=== PATIENT | female | born 1990 | race Caucasian/White ===

== ENCOUNTER → 2019-12-17 | Outpatient (CLI) | payer OTHER ==
--- NOTE | 2019-12-17 09:21 | USB ---
Reason for exam: clinical finding. History: Family history of breast cancer in paternal aunt. Indicated problem(s): palpable abnormality in the left breast. Physical Findings: Nurse Summary: all soft, nodular, moveable (nurse ts). US Breast LT Left complete breast ultrasound includes all four quadrants, the retroareolar region and axilla. Finding demonstrates no cystic or solid lesion seen. These results were verbally communicated with the patient and result sheet given to the patient on 12/17/19. ASSESSMENT: Negative, BI-RAD 1 RECOMMENDATION: Routine screening mammogram of both breasts at age 40. Unless there is clinical indication to start sooner. Manage on a clinical basis with regard to any suspicious palpable abnormality. If any new palpable, the patient can be rescanned.
== END | disposition home or self-care (01) ==
LOC: RADUSWWP 07:06
PROVIDERS: ATTEND Family Medicine
DX: N63.20 Unspecified lump in the left breast, unspecified quadrant (principal)

== ENCOUNTER 2020-04-16 17:59 | Emergency (ER) | payer OTHER ==
[2020-04-16 18:08] VITALS: TEMP 98.4
[2020-04-16] MEDS ORDERED: SODIUM CHLORIDE 0.9% 1,000 ML IV ONE (18:41)
[2020-04-16] MEDS ORDERED: METOCLOPRAMIDE 5 MG/ML 2 ML VIAL IVP STA (18:41)
[2020-04-16 19:12] LABS: Basophils % (A) 0 %; Eosinophils # (A) 0.2 k/uL (0-0.7); Eosinophils % (A) 1 %; HCT 44.2 % (34.0-46.0); Lymphocytes % (A) 20 %; MCH 28.9 pg (25.0-35.0); MCHC 31.7 g/dL (31.0-37.0); Mean Platelet Volume 8.9; Monocytes # (A) 0.4 k/uL (0-1.0); Monocytes % (A) 3 %; Neutrophils # (A) 11.1 k/uL (1.3-7.7); Neutrophils % (A) 74 %; Platelet Count 241 k/uL (150-450); RBC 4.86 m/uL (3.80-5.40)
[2020-04-16 19:30] LABS: ALT 13 U/L (4-34); AST 23 U/L (14-36); African American GFR (CKD) >90 (>60 ml/min/1.73 sqM); Albumin 4.5 g/dL (3.5-5.0); Alkaline Phosphatase 64 U/L (38-126); Anion Gap 9 mmol/L; Blood Urea Nitrogen 8 mg/dL (7-17); Calcium 9.7 mg/dL (8.4-10.2); Carbon Dioxide 27 mmol/L (22-30); Chloride 101 mmol/L (98-107); Glucose 86 mg/dL (74-99); Non-African American GFR(CKD) >90 (>60 ml/min/1.73 sqM); Sodium 137 mmol/L (137-145); Total Bilirubin 0.8 mg/dL (0.2-1.3); Total Protein 7.4 g/dL (6.3-8.2)
[2020-04-16 19:48] LABS: Appearance,Urine Cloudy (Clear); Bacteria,Urine Many /hpf; Bilirubin,Urine Negative (Negative); Blood,Urine Negative (Negative); Color,Urine Yellow; Glucose,Urine (UA) Negative (Negative); Ketones,Urine 2+ (Negative); Leukocyte Esterase,Urine Small (Negative); Mucus,Urine Few /hpf; Nitrite,Urine Negative (Negative); PH, Urine 5.5 (5.0-8.0); Protein,Urine Trace (Negative); RBC,Urine 3 /hpf (0-5); Specific Gravity,Urine 1.028 (1.001-1.035); Squamous Epithelial Cell,Urine 58 /hpf (0-4); Urobilinogen,Urine <2.0 mg/dL (<2.0); WBC,Urine 5 /hpf (0-5)
--- NOTE | 2020-04-16 20:04 | US ---
EXAMINATION TYPE: Transabdominal DATE OF EXAM: 04/16/2020 7:39 PM COMPARISON: NONE CLINICAL HISTORY: n/v . EXAM PERFORMED: Transabdominal (TA) EXAM MEASUREMENTS: GESTATIONAL AGE / DATING Physician Established: Not yet established Dates by LMP: 01/20/2020 (12 weeks/3 days) EDC: 10/26/2020 Dates by First Scan: No previous this is first scan Dates by Current Scan for: (11 weeks/1 days) EDC: 11/04/2020 MATERNAL ANATOMY Uterus: 11.9 x 3.9 x 8.3 cm Right Ovary: 3.2 x 1.6 x 3.1 cm Left Ovary: 2.8 x 1.3 x 2.4 cm Post CDS / Adnexa: wnl Presence of free fluid: none GESTATION / SURVEY CRL: 4.3 cm (11 weeks/1 days) Yolk Sac (normal less than 6mm): 0.5 cm Heart Rate: 151 bpm Rhythm: Normal IUP: Viable IUP Date of LMP: 01/20/2020 Beta HcG (if available): not available Single viable IUP. IMPRESSION: The ultrasound gestational age is 11 weeks and 1 day. No complicating process.
[2020-04-16 20:13] VITALS: PULSE 55; RESP 12
[2020-04-16] MEDS ORDERED: CEPHALEXIN 500 MG CAP PO STA (20:23)
--- NOTE | 2020-04-16 20:37 | ED ---
General Adult HPI - General Chief complaint: Nausea/Vomiting/Diarrhea Stated complaint: vomiting Time Seen by Provider: 04/16/20 18:18 Source: patient, RN notes reviewed, old records reviewed Mode of arrival: ambulatory Limitations: no limitations - History of Present Illness Initial comments: 29-year-old female patient who is a approximately 12 weeks gestation to ED for nausea and vomiting. Denies any vaginal bleeding, abdominal pain or any other acute complaints. Systemic: Pt denies fatigue, fever/chills, rash. Pt denies weakness, night sweat s, weight loss. Neuro: Pt denies headache, visual disturbances, syncope or pre-syncope. HEENT: Pt denies ocular discharge or irritation, otalgia, rhinorrhea, pharyngitis or notable lymphadenopathy. Cardiopulmonary: Pt denies chest pain, SOB, heart palpitations, dyspnea on exertion. Abdominal/GI: Pt denies abdominal pain, diarrhea. : Pt denies dysuria, burning w/ urination, frequency/urgency. Denies new onset urinary or bowel incontinence. MSK: Pt denies myalgia, loss of strength or function in extremities. Neuro: Pt denies new onset weakness, paresthesias. - Related Data Home Medications Medication Instructions Recorded Confirmed Zke-Pkvs-Ppwvx Acid 1 cap PO DAILY 04/16/20 04/16/20 [-U Capsule (formulary)] Pyridoxine HCl (Vitamin B6) 100 mg PO DAILY 04/16/20 04/16/20 [Vitamin B-6] Sertraline HCl [Zoloft] 50 mg PO DAILY 04/16/20 04/16/20 Previous Rx's Medication Instructions Recorded Cephalexin [Keflex] 500 mg PO Q12HR 5 Days #10 cap 04/16/20 Allergies Allergy/AdvReac Type Severity Reaction Status Date / Time Penicillins Allergy Unknown Verified 04/16/20 20:29 Review of Systems ROS Statement: Those systems with pertinent positive or pertinent negative responses have been documented in the HPI. ROS Other: All systems not noted in ROS Statement are negative. Past Medical History Past Medical History: No Reported History History of Any Multi-Drug Resistant Organisms: None Reported Past Surgical History: Section Past Psychological History: No Psychological Hx Reported Smoking Status: Never smoker Past Alcohol Use History: None Reported Past Drug Use History: None Reported General Exam - General Exam Comments Initial Comments: Constitutional: NAD, AOX3, Pt has pleasant affect. HEENT: NC/AT, trachea midline, neck supple, no lymphadenopathy. External ears appear normal, without discharge. Mucous membranes moist. Eyes PERRLA, EOM intact. There is no scleral icterus. No pallor noted. Cardiopulmonary: RRR, no murmurs, rubs or gallops, no JVD noted. Lungs CTAB in anterior and posterior celestin. No peripheral edema. Abdominal exam: Abdomen soft and non-distended. Abdomen non-tender to palpation in all 4 quadrants. Bowel sounds active in LLQ. No hepatosplenomegaly. No ecchymosis Neuro: CN II-XII grossly intact. No nuchal rigidity. MSK: Full active ROM in upper and lower extremities. Limitations: no limitations Course Vital Signs 04/16/20 04/16/20 18:05 20:12 Temperature 98.4 F Pulse Rate 63 55 L Respiratory 18 12 Rate Blood Pressure 116/76 98/59 O2 Sat by Pulse 99 99 Oximetry Medical Decision Making - Medical Decision Making 29-year-old female patient to ED for nausea and vomiting. 2. Patient not previously had an ultrasound that displayed intrauterine . Vital s igns are stable, afebrile. O2 investigations reveal mild cytosis likely reactive. UA had 2+ ketones, 58 squamous cells, many bacteria. US displayed a gestational age of 11 weeks and 1 day. Patient is feeling much improved and is tolerating oral intake was administered 1 L of normal saline. Shared decision making patient does wish to be treated with Keflex for asymptomatic bacteriuria. Discussed her penicillin allergyshe verbalized understanding and wishes to try keflex. She reports that she is taking her vitamins. She'll follow up with primary care provider, dish room worker and will return to ER with any worsening symptoms. Case discussed with Dr. Ashley. - Lab Data Result diagrams: 04/16/20 18:54 04/16/20 18:54 Lab Results 04/16/20 04/16/20 04/16/20 Range/Units 18:54 18:54 18:54 WBC 15.0 H (3.8-10.6) k/uL RBC 4.86 (3.80-5.40) m/uL Hgb 14.0 (11.4-16.0) gm/dL Hct 44.2 (34.0-46.0) % MCV 91.0 (80.0-100.0) fL MCH 28.9 (25.0-35.0) pg MCHC 31.7 (31.0-37.0) g/dL RDW 13.0 (11.5-15.5) % Plt Count 241 (150-450) k/uL Neutrophils % 74 % Lymphocytes % 20 % Monocytes % 3 % Eosinophils % 1 % Basophils % 0 % Neutrophils # 11.1 H (1.3-7.7) k/uL Lymphocytes # 3.0 (1.0-4.8) k/uL Monocytes # 0.4 (0-1.0) k/uL Eosinophils # 0.2 (0-0.7) k/uL Basophils # 0.0 (0-0.2) k/uL Sodium 137 (137-145) mmol/L Potassium 4.0 (3.5-5.1) mmol/L Chloride 101 (98-107) mmol/L Carbon Dioxide 27 (22-30) mmol/L Anion Gap 9 mmol/L BUN 8 (7-17) mg/dL Creatinine 0.56 (0.52-1.04) mg/dL Est GFR (CKD-EPI)AfAm >90 (>60 ml/min/1.73 sqM) Est GFR (CKD-EPI)NonAf >90 (>60 ml/min/1.73 sqM) Glucose 86 (74-99) mg/dL Calcium 9.7 (8.4-10.2) mg/dL Total Bilirubin 0.8 (0.2-1.3) mg/dL AST 23 (14-36) U/L ALT 13 (4-34) U/L Alkaline Phosphatase 64 (38-126) U/L Total Protein 7.4 (6.3-8.2) g/dL Albumin 4.5 (3.5-5.0) g/dL Urine Color Yellow Urine Appearance Cloudy H (Clear) Urine pH 5.5 (5.0-8.0) Ur Specific Proctor 1.028 (1.001-1.035) Urine Protein Trace H (Negative) Urine Glucose (UA) Negative (Negative) Urine Ketones 2+ H (Negative) Urine Blood Negative (Negative) Urine Nitrite Negative (Negative) Urine Bilirubin Negative (Negative) Urine Urobilinogen <2.0 (<2.0) mg/dL Ur Leukocyte Esterase Small H (Negative) Urine RBC 3 (0-5) /hpf Urine WBC 5 (0-5) /hpf Ur Squamous Epith Cells 58 H (0-4) /hpf Urine Bacteria Many H (None) /hpf Urine Mucus Few H (None) /hpf Disposition Clinical Impression: Asymptomatic bacteriuria, Nausea and vomiting during Disposition: HOME SELF-CARE Condition: Stable Instructions (If sedation given, give patient instructions): Nausea and Vomiting in (ED) Additional Instructions: Follow up with PCP tomorrow. Follow up with MANAGER CHINESE tomorrow. Return to ED with any worsening symptoms. Prescriptions: Cephalexin [Keflex] 500 mg PO Q12HR 5 Days #10 cap Is patient prescribed a controlled substance at d/c from ED?: No Referrals: Lauro Isaacs [Primary Care Provider] - 1-2 days
[2020-04-16 20:46] VITALS: BP 101/60
[2020-04-16 21:52] LABS: HCG,Quantitative Serum 99411.4 mIU/mL
== END 2020-04-16 20:45 | disposition home or self-care (01) ==
LOC: EC 17:59
DX: O21.9 Vomiting of pregnancy, unspecified (principal); O23.91 Unspecified genitourinary tract infection in pregnancy, first trimester; R82.71 Bacteriuria; Z3A.11 11 weeks gestation of pregnancy; Z88.0 Allergy status to penicillin; Z98.890 Other specified postprocedural states; Z79.899 Other long term (current) drug therapy
CPT/HCPCS: 36415; 80053; 85025; 81001; 84702; 76801; 99284; 96374; 96361 ×2; J2765

== ENCOUNTER 2020-04-19 11:41 | Outpatient (CLI) | payer OTHER ==
[2020-04-19] MEDS: LACTATED RINGERS 1,000 ML IV SCH ×2 (12:00→12:41)
[2020-04-19] MEDS ORDERED: ONDANSETRON 4 MG/2 ML VIAL IVP STA (12:17)
[2020-04-19 13:59] LABS: Appearance,Urine Clear (Clear); Bilirubin,Urine Negative (Negative); Blood,Urine Negative (Negative); Color,Urine Yellow; Glucose,Urine (UA) Negative (Negative); Ketones,Urine 2+ (Negative); Leukocyte Esterase,Urine Negative (Negative); Nitrite,Urine Negative (Negative); PH, Urine 6.5 (5.0-8.0); Protein,Urine Negative (Negative); Specific Gravity,Urine 1.018 (1.001-1.035); Urobilinogen,Urine <2.0 mg/dL (<2.0)
[2020-04-19 14:36] VITALS: BP 115/69; PULSE 74; RESP 16; TEMP 97.3
--- NOTE | 2020-04-26 08:21 | P.MSEPDOC ---
Presenting Problems - Arrival Data Date of Arrival on Unit: 04/19/20 Time of Arrival on Unit: 11:41 Mode of Transport: Ambulatory - Complaint OB-Reason for Admission/Chief Complaint: Acute Nausea/Vomiting Medical History - Information : 2 Para: 1 Term: 1 : 0 Abortions: Spontaneous or Elective: 0 Number of Living Children: 1 - Gestational Age Gestational Age by SONALI (wks/days): 11 Weeks and 2 Days Review of Systems - Review of Systems Constitutional: No problems Breast: No problems ENT: No problems Cardiovascular: No problems Respiratory: No problems Gastrointestinal: No problems Genitourinary: No problems Musculoskeletal: No problems Neurological: No problems Skin: No problems Vital Signs - Temperature Temperature: 97.3 F Temperature Source: Temporal Artery Scan - Pulse Right Sitting Pulse Rate: 74 Pulse Assessment Method: Automatic Cuff - Respirations Respiratory Rate: 16 Oxygen Delivery Method: Room Air - Blood Pressure Right Arm Blood Pressure: 115/69 Blood Pressure Mean: 84 Blood Pressure Source: Automatic Cuff Medical Screen Scoring (Pre) - Cervical Exam Dilation: Exam Deferred Effacement: Exam Deferred Membranes: Intact - Uterine Contractions Frequency: N/A Duration: N/A Intensity: N/A - Maternal Vital Signs Maternal Temperature: N/A Maternal Blood Pressure: N/A Signs of Preeclampsia: N/A Maternal Respirations: N/A - Maternal Trauma Maternal Trauma: N/A - Total Score - Baby A Total Score - Baby A: 0 - Total Score - Baby B Total Score - Baby B: 0 - Total Score - Baby C Total Score - Baby C: 0 - Level of Risk - Baby A Level of Risk - Baby A: Low (0-5) - Level of Risk - Baby B Level of Risk - Baby B: Low (0-5) - Level of Risk - Baby C Level of Risk - Baby C: Low (0-5) Physician Notification (Pre) - Physician Notified Physician Notified Date: 04/19/20 Physician Notified Time: 14:22 New Order Received: Yes (d/c home) Disposition - Disposition OB Disposition: Discharge to home Discharge Date: 04/19/20 Discharge Time: 14:28 I agree with the RN Medical Screening Exam: Yes Risk & Benefit of care provided described in d/c instruction: Yes Diagnosis: MILD HYPEREMESIS GRAVIDARUM
== END 2020-04-19 14:28 | disposition home or self-care (01) ==
LOC: FBPOP 11:41
PROVIDERS: ATTEND Obstetrics & Gynecology
DX: O21.0 Mild hyperemesis gravidarum (principal); Z3A.11 11 weeks gestation of pregnancy
CPT/HCPCS: 96361; 96374; 81003; G0463; J2405; 99214

== ENCOUNTER 2020-11-10 05:08 | Inpatient (IN) | payer OTHER ==
[2020-11-10] MEDS ORDERED: LIDOCAINE 0.5% (PF) 5 MG/ML (50 ML SDV) SQ PRN (06:02)
[2020-11-10] MEDS ORDERED: OXYTOCIN 10 UNIT/ML 1 ML VIAL IM PRN (06:02)
[2020-11-10] MEDS ORDERED: CARBOPROST TROMETHAMINE 250 MCG/ML 1 ML AMP IM PRN (06:02)
[2020-11-10] MEDS ORDERED: METHYLERGONOVINE 0.2 MG/ML 1 ML AMP IM PRN (06:02)
[2020-11-10] MEDS ORDERED: TERBUTALINE 1 MG/ML VIAL SQ PRN (06:02)
[2020-11-10] MEDS ORDERED: OXYTOCIN 30 UNITS/500 ML NS 30 UNIT in SALINE 1 500ML.BAG IV SCH (06:15)
[2020-11-10] MEDS: LACTATED RINGERS 1,000 ML IV SCH ×4 (06:17→21:42)
[2020-11-10 06:56] LABS: Basophils % (A) 0 %; Eosinophils % (A) 0 %; HCT 33.4 % (34.0-46.0); HGB 10.5 gm/dL (11.4-16.0); Hypochromasia Moderate; Lymphocytes # (A) 2.1 k/uL (1.0-4.8); Lymphocytes % (A) 24 %; MCH 25.2 pg (25.0-35.0); MCHC 31.3 g/dL (31.0-37.0); MCV 80.4 fL (80.0-100.0); Mean Platelet Volume 14.5; Monocytes # (A) 0.3 k/uL (0-1.0); Monocytes % (A) 4 %; Neutrophils # (A) 6.5 k/uL (1.3-7.7); Neutrophils % (A) 71 %; Poikilocytosis Slight; RBC 4.16 m/uL (3.80-5.40); RDW 15.1 % (11.5-15.5); WBC 9.1 k/uL (3.8-10.6)
[2020-11-10 07:48] LABS: Platelet Count 118 k/uL (150-450)
[2020-11-10 07:49] LABS: Large Platelets Present
--- NOTE | 2020-11-10 11:04 | P.HPOB ---
History of Present Illness H&P Date: 11/10/20 Chief Complaint: SROM 30-year-old presents at 40 weeks and 6 days with spontaneous rupture of membranes at 3 AM. Her cervix is 3 cm solid, 60% effaced, and -2 station. She is kamran about every 20 minutes. heart tones 140 with moderate variability and reactive. Review of Systems All systems: negative Constitutional: Denies chills, Denies fever Eyes: denies blurred vision, denies pain Ears, nose, mouth and throat: Denies headache, Denies sore throat Cardiovascular: Denies chest pain, Denies shortness of breath Respiratory: Denies cough Gastrointestinal: Denies abdominal pain, Denies diarrhea, Denies nausea, Denies vomiting Genitourinary: Denies dysuria, Denies hematuria Musculoskeletal: Denies myalgias Integumentary: Denies pruritus, Denies rash Neurological: Denies numbness, Denies weakness Psychiatric: Denies anxiety, Denies depression Endocrine: Denies fatigue, Denies weight change Past Medical History Past Medical History: No Reported History History of Any Multi-Drug Resistant Organisms: None Reported Past Surgical History: Section Additional Past Surgical History / Comment(s): [place] teeth removal Past Anesthesia/Blood Transfusion Reactions: No Reported Reaction Past Psychological History: Anxiety, Depression Smoking Status: Never smoker Past Alcohol Use History: None Reported Past Drug Use History: None Reported - Past Family History Father Family Medical History: Hypertension Medications and Allergies Home Medications Medication Instructions Recorded Confirmed Type Zuf-Chtc-Xyujw Acid 1 cap PO DAILY 04/16/20 11/10/20 History [-U Capsule (formulary)] Sertraline HCl [Zoloft] 50 mg PO DAILY 04/16/20 11/10/20 History Allergies Allergy/AdvReac Type Severity Reaction Status Date / Time Penicillins Allergy Rash/Hives Verified 11/10/20 05:18 Exam Osteopathic Statement: *. No significant issues noted on an osteopathic structural exam other than those noted in the History and Physical/Consult. Vital Signs Temp Pulse Resp BP Pulse Ox 11/10/20 05:50 97.6 F 88 18 127/79 97 11/10/20 05:28 97.6 F 88 18 127/79 97 Intake and Output 11/09/20 11/10/20 11/10/20 22:59 06:59 14:59 Other: # Voids 1 Weight 80.286 kg Heart: Regular rate and rhythm Lungs: Clear to auscultation bilaterally Abdomen: Soft, nontender Extremities: Negative Homans sign Results Result Diagrams: 11/10/20 06:45 Abnormal Lab Results - Last 24 Hours (Table) 11/10/20 Range/Units 06:45 Hgb 10.5 L (11.4-16.0) gm/dL Hct 33.4 L (34.0-46.0) % Plt Count 118 L (150-450) k/uL Assessment and Plan (1) Encounter for trial of labor Current Visit: Yes Status: Acute Code(s): CBD8475 - SNOMED Code(s): 361995985 (2) SROM (spontaneous rupture of membranes) Current Visit: Yes Status: Acute Code(s): LBG4821 - SNOMED Code(s): 530123396 Plan: 1. expectant management 2. shared decision making during labor and delivery 3. close monitoring 4. anticipate vaginal after
--- NOTE | 2020-11-10 11:33 | P.MSEPDOC ---
Presenting Problems - Arrival Data Date of Arrival on Unit: 11/10/20 Time of Arrival on Unit: 05:42 Mode of Transport: Ambulatory - Complaint OB-Reason for Admission/Chief Complaint: Rule Out SROM Comment: Pt states water broke at home around 0300 with clear fluid Medical History - Information : 2 Para: 1 Term: 1 : 0 Abortions: Spontaneous or Elective: 0 Number of Living Children: 1 - Gestational Age Gestational Age by SONALI (wks/days): 40 Weeks and 6 Days - History Complications: Prior Review of Systems - Review of Systems Constitutional: No problems Breast: No problems ENT: No problems Cardiovascular: No problems Respiratory: No problems Gastrointestinal: No problems Genitourinary: No problems Musculoskeletal: No problems Neurological: No problems Skin: No problems Vital Signs - Temperature Temperature: 97.6 F Temperature Source: Temporal Artery Scan - Pulse Pulse Oximetery Pulse Rate: 88 Pulse Assessment Method: Automatic Cuff - Respirations Respiratory Rate: 18 Oxygen Delivery Method: Room Air O2 Sat by Pulse Oximetry: 97 - Blood Pressure Right Arm Blood Pressure: 127/79 Blood Pressure Mean: 95 Blood Pressure Source: Automatic Cuff Medical Screen Scoring (Pre) - Cervical Exam Dilation: 1-3 cm = 1 Effacement: Exam Deferred Membranes: Ruptured = 3 - Uterine Contractions Frequency: > 5 minutes apart = 1 Duration: N/A Intensity: N/A - Maternal Vital Signs Maternal Temperature: N/A Maternal Blood Pressure: N/A Signs of Preeclampsia: N/A Maternal Respirations: N/A - Maternal Trauma Maternal Trauma: N/A - Assessment - Baby A Baseline FHR: 140 Heart Rate - NICHD Category: Category I (Normal) = 0 NST: Reactive Position: N/A Station: N/A - Total Score - Baby A Total Score - Baby A: 5 - Total Score - Baby B Total Score - Baby B: 5 - Total Score - Baby C Total Score - Baby C: 5 - Level of Risk - Baby A Level of Risk - Baby A: Low (0-5) - Level of Risk - Baby B Level of Risk - Baby B: Low (0-5) - Level of Risk - Baby C Level of Risk - Baby C: Low (0-5) Physician Notification (Pre) - Physician Notified Physician Notified Date: 11/10/20 Physician Notified Time: 05:55 New Order Received: Yes - Notification Comment Comment: Dr. Hanna called re: pt c/o water breaking around 0300 with clear fluid,. positive amnisure, SVE, GBS status, pt desire to and status. Orders received. to admit pt and start pitocin per protocol Disposition - Disposition OB Disposition: Admit, LDRP Suite Transferred to:: Suite 8 I agree with the RN Medical Screening Exam: Yes Case reviewed; plan agreed upon as documented in EMR&OBIX.: Yes Diagnosis: ENCOUNTER FOR FULL-TERM UNCOMPLICATED DELIVERY
[2020-11-10] MEDS ORDERED: BUTORPHANOL 1 MG/ML 1 ML VIAL IV PRN (12:59)
[2020-11-10] MEDS ORDERED: ROPIVACAINE 5MG/ML 20ML VIAL ONE (15:18)
[2020-11-10] MEDS ORDERED: fentaNYL (PF) 50 MCG/ML 5 ML AMP ONE (15:18)
[2020-11-10] MEDS ORDERED: SODIUM CHLORIDE 0.9% 100 ML BAG ONE (15:18)
[2020-11-10] MEDS ORDERED: CLINDAMYCIN 900 MG in DEXTROSE 5% IN WATER 50 ML IVPB STA ×2 (16:22)
[2020-11-10] MEDS ORDERED: LANOLIN CREAM 5 GM TUBE TOPICAL PRN (20:53)
[2020-11-10] MEDS ORDERED: SIMETHICONE 80 MG CHEWABLE PO PRN (20:53)
[2020-11-10] MEDS ORDERED: bisacodyL 10 MG SUPP RECTAL PRN (20:53)
[2020-11-10] MEDS ORDERED: ZOLPIDEM 5 MG TAB PO PRN (20:53)
[2020-11-10] MEDS ORDERED: HYDROCORTISONE 2.5% RECTAL CREAM 30 GM TUBE RECTAL PRN (20:53)
[2020-11-10] MEDS ORDERED: diphenhydrAMINE 25 MG CAP PO PRN (20:53)
[2020-11-10] MEDS ORDERED: diphenhydrAMINE 50 MG/ML 1 ML VIAL IVP PRN (20:53)
[2020-11-10] MEDS ORDERED: BENZOCAINE/MENTHOL SPRAY 1 GM/SPRAY AEROSOL TOPICAL PRN (20:53)
--- NOTE | 2020-11-10 21:05 | P.PROBDLV ---
Vaginal Delivery Note - . Vaginal Delivery Note: Normal vaginal delivery () viable male Apgars 7 and 9 delivery time is 5 hrs. Please see dictated H&P for intimate details of this patient's admission per Dr. Dunn. In brief summary this is a 30-year-old 2 para 1 female 40-6/7 weeks gestation admitted this morning after spontaneous rupture membranes at 3 in the morning. Patient has had a previous section for distress in [place] and had discussed delivery route with Dr. Dunn elected to proceed with vaginal after section. Patient had been counseled about the risks and benefits. Patient initially was not having contractions however declined getting Pitocin. Later in the morning after discussion with Dr. Dunn she did agree to Pitocin for augmentation of labor. Patient's labor slowly progressed and she did get an epidural for pain control with good relief. She was given one dose of clindamycin due to premature rupture of membranes. Patient gets to complete pushes for approximately 1 hour. Patient pushes the head to the perineum posterior perineum was supported. At this time we have controlled delivery of the 's head over the perineum. Mouth and nares are bulb suctioned. There is a very loose nuchal cord which is reduced. head is occiput anterior. With gentle downward traction and maternal effort we easily have delivery of the anterior posterior shoulders and the rest of this 's body. is somewhat depressed at delivery but readily comes around with stimulation. Apgars are 7 and 9 delivery time is 2025 hours. After delivery of the infant the umbilical cord is doubly clamped and cut appears to be trivascular. Placenta is then spontaneously delivered intact. Estimated blood loss is 250 mL. There is a second-degree laceration which is repaired with 3-0 Vicryl in the usual fashion excellent reapproximation is noted. All counts are correct 3. There are no complications. Infant is taken to special care nursery for short observation and mother is resting in her birthing suite.
[2020-11-10] MEDS: IBUPROFEN 600 MG TAB PO PRN (21:21)
[2020-11-10] MEDS: OXYTOCIN 30 UNITS/500 ML NS 30 UNIT in SALINE 1 500ML.BAG IV SCH ×2 (21:42→23:37)
[2020-11-11] MEDS: ACETAMINOPHEN TAB 325 MG TAB PO PRN ×3 (00:19→21:40)
[2020-11-11] MEDS: IBUPROFEN 600 MG TAB PO PRN ×3 (04:27→18:14)
[2020-11-11 06:08] LABS: HCT 30.4 % (34.0-46.0); HGB 9.7 gm/dL (11.4-16.0); Hypochromasia Slight; MCH 25.5 pg (25.0-35.0); MCHC 31.8 g/dL (31.0-37.0); MCV 80.2 fL (80.0-100.0); Mean Platelet Volume 14.4; Platelet Count 166 k/uL (150-450); Poikilocytosis Slight; RBC 3.79 m/uL (3.80-5.40); RDW 15.2 % (11.5-15.5); WBC 33.2 k/uL (3.8-10.6)
[2020-11-11 06:45] LABS: Lymphocytes # (M) 2.66 k/uL (1.0-4.8); Neutrophils # (M) 30.54 k/uL (1.3-7.7); Neutrophils % (M) 92 %; Nucleated Red Blood Cells 0 /100 WBC (0-0); Total Cells Counted 100
[2020-11-11] MEDS: SENNOSIDES-DOCUSATE SODIUM 1 EACH TAB PO PRN ×2 (08:49→20:39)
--- NOTE | 2020-11-11 08:49 | P.DS ---
Providers Date of admission: 11/10/20 05:42 Expected date of discharge: 11/11/20 Attending physician: Bri Dunn Primary care physician: Stated None - Discharge Diagnosis(es) (1) Encounter for trial of labor Current Visit: Yes Status: Resolved (2) SROM (spontaneous rupture of membranes) Current Visit: Yes Status: Resolved (3) Vaginal after Current Visit: Yes Status: Acute Hospital Course: Patient presented at 40 weeks and 6 days with ruptured membranes. She had previous section has been counseled extensively on trial of labor after section. She was kamran irregularly and not making much cervical change so Pitocin augmentation was given. She did get an epidural as well. Patient underwent a vaginal after section. No complications. Denies nausea, vomiting, chest pain, shortness of breath or any calf pain. Her lochia is decreasing. She'll be discharged home day #1 in stable condition to follow-up with me in 6 weeks. Plan - Discharge Summary New Discharge Prescriptions: New Ibuprofen [Motrin] 600 mg PO Q6H PRN #30 tab PRN Reason: Pain No Action Sertraline HCl [Zoloft] 50 mg PO DAILY Mti-Hklp-Nnian Acid [-U Capsule (formulary)] 1 cap PO DAILY Discharge Medication List Lrk-Wewz-Wkrwt Acid [-U Capsule (formulary)] 1 cap PO DAILY 04/16/20 [History] Sertraline HCl [Zoloft] 50 mg PO DAILY 04/16/20 [History] Ibuprofen [Motrin] 600 mg PO Q6H PRN #30 tab 11/11/20 [Rx] Follow up Appointment(s)/Referral(s): Bri Dunn DO [Doctor of Osteopathic Medicine] - 3 Weeks Discharge Disposition: HOME SELF-CARE
[2020-11-11 09:57] VITALS: RESP 16
[2020-11-12] MEDS: IBUPROFEN 600 MG TAB PO PRN ×2 (00:45→08:07)
[2020-11-12] MEDS: SENNOSIDES-DOCUSATE SODIUM 1 EACH TAB PO PRN (08:07)
[2020-11-12] MEDS: ACETAMINOPHEN TAB 325 MG TAB PO PRN (13:32)
[2020-11-12 16:29] VITALS: BP 123/76; PULSE 68; TEMP 98.3
== END 2020-11-12 17:08 | disposition home or self-care (01) | DRG 807 ==
LOC: FBPOP 05:08 → 4FBP 05:42
PROVIDERS: ADMIT Obstetrics & Gynecology; ATTEND Obstetrics & Gynecology
PROC: 10E0XZZ Delivery of Products of Conception, External Approach (ICD-10-PCS; principal; 2020-11-10)
PROC: 0KQM0ZZ Repair Perineum Muscle, Open Approach (ICD-10-PCS; 2020-11-10)
DX: O34.219 Maternal care for unspecified type scar from previous cesarean delivery (principal); Z37.0 Single live birth; O69.81X0 Labor and delivery complicated by cord around neck, without compression, not applicable or unspecified; O70.1 Second degree perineal laceration during delivery; Z3A.40 40 weeks gestation of pregnancy; Z79.899 Other long term (current) drug therapy; Z82.49 Family history of ischemic heart disease and other diseases of the circulatory system
CPT/HCPCS: 59025; 85025; 86850; 86900; 86901; 88307; 99213

== ENCOUNTER → 2021-04-11 | Outpatient (CLI) | payer OTHER ==
[2021-04-11 16:40] LABS: Basophils % (A) 0 %; Eosinophils # (A) 0.1 k/uL (0-0.7); Eosinophils % (A) 1 %; HCT 41.9 % (34.0-46.0); HGB 13.9 gm/dL (11.4-16.0); Lymphocytes # (A) 3.5 k/uL (1.0-4.8); Lymphocytes % (A) 36 %; MCH 28.4 pg (25.0-35.0); MCHC 33.2 g/dL (31.0-37.0); MCV 85.4 fL (80.0-100.0); Mean Platelet Volume 8.9; Monocytes # (A) 0.4 k/uL (0-1.0); Monocytes % (A) 4 %; Neutrophils # (A) 5.4 k/uL (1.3-7.7); Neutrophils % (A) 57 %; Platelet Count 246 k/uL (150-450); RBC 4.91 m/uL (3.80-5.40); RDW 15.4 % (11.5-15.5); WBC 9.5 k/uL (3.8-10.6)
== END | disposition home or self-care (01) ==
LOC: LABWHC1 15:28
PROVIDERS: ATTEND Surgery
DX: Z01.812 Encounter for preprocedural laboratory examination (principal); K42.9 Umbilical hernia without obstruction or gangrene
CPT/HCPCS: 85025; 86850; 86900; 86901

== ENCOUNTER 2021-04-19 05:51 | Day surgery (SDC) | payer OTHER ==
[2021-04-18 09:40] VITALS: BMI 28.3
[~2021-04-19 05:51] MED LIST: ACETAMINOPHEN TAB 500 MG TAB PO PRN
[2021-04-19] MEDS ORDERED: DEXAMETHASONE SOD PHOSPHATE 4 MG/ML 1 ML VIAL IV ONE (06:03)
[2021-04-19] MEDS ORDERED: LACTATED RINGERS 1,000 ML IV SCH (06:03)
[2021-04-19] MEDS ORDERED: MIDAZOLAM 2 MG/2 ML VIAL IV PRN (06:03)
[2021-04-19] MEDS ORDERED: LIDOCAINE 1% (10MG/ML) FOR IV START INTRADERMA PRN (06:03)
[2021-04-19] MEDS ORDERED: ONDANSETRON 4 MG/2 ML VIAL IVP ONE (06:03)
[2021-04-19] MEDS ORDERED: SCOPOLAMINE 1.5MG/72HR PATCH TRANSDERM ONE (06:50)
[2021-04-19] MEDS: HEPARIN SODIUM,PORCINE/PF 5,000 UNIT/0.5 ML SYRINGE SQ PRN ×2 (06:50→07:26)
[2021-04-19] MEDS ORDERED: MIDAZOLAM 2 MG/2 ML VIAL IVP ONE (06:59)
[2021-04-19] MEDS ORDERED: fentaNYL (PF) 50 MCG/ML 2 ML AMP IVP ONE (06:59)
--- NOTE | 2021-04-19 07:23 | P.ANPRN ---
Procedure Note - Anesthesia - Nerve Block Performed Bilateral Rectus Abdominis Single Time Out Performed: Yes Date of Procedure: 04/19/21 Procedure Start Time: 06:58 Procedure Stop Time: 07:07 Location of Patient: PreOp Indication: Requested by Surgeon Specifically requested for management of pain by DrEstrellita: Eb Nguyen Sedation Type: Sedate with meaningful contact maintained Preparation: Sterile Prep Position: Supine Needle Types: Pajunk Needle Gauge: 21 Ultrasound used to visualize needle placement: Yes Ultrasound used to observe medication spread: Yes Injectate: 0.5% Ropivacaine (see comment for volume) (15 ml +15 ml 0.9 % NS + 2mg Dexamethasone per side) Blood Aspirated: No Pain Paresthesia on Injection Noted: No Resistance on Injection: Normal Image Stored and Saved: Yes Events: Uneventful and Well Tolerated
[2021-04-19] MEDS ORDERED: GLYCOPYRROLATE 0.2 MG/ML 2 ML VIAL ONE (07:55)
[2021-04-19] MEDS ORDERED: fentaNYL (PF) 50 MCG/ML 2 ML AMP ONE (07:55)
[2021-04-19] MEDS ORDERED: DEXAMETHASONE SOD PHOSPHATE 4 MG/ML 1 ML VIAL ONE (07:55)
[2021-04-19] MEDS ORDERED: ceFAZolin 1,000 MG VIAL ONE (07:55)
[2021-04-19] MEDS ORDERED: ROPIVACAINE 5 MG/ML 30 ML VIAL ONE (07:55)
[2021-04-19] MEDS ORDERED: SUCCINYLCHOLINE CHLORIDE 100 MG/5 ML SYR IV ONE (07:55)
[2021-04-19] MEDS ORDERED: KETAMINE 10 MG/ML 20 ML VIAL ONE (07:55)
[2021-04-19] MEDS ORDERED: SODIUM CHLORIDE 0.9% 100 ML BAG ONE (07:55)
[2021-04-19] MEDS ORDERED: ROCURONIUM 10 MG/ML (5 ML VIAL) IV ONE (07:55)
[2021-04-19] MEDS ORDERED: MIDAZOLAM 2 MG/2 ML VIAL ONE (07:55)
[2021-04-19] MEDS ORDERED: SODIUM CHLORIDE 0.9% (PF) 10 ML VIAL ONE (07:55)
[2021-04-19] MEDS ORDERED: NEOSTIGMINE 1 MG/ML 10 ML VIAL ONE (07:55)
[2021-04-19] MEDS ORDERED: PROPOFOL 10 MG/ML 20 ML VIAL IV ONE (07:55)
[2021-04-19] MEDS ORDERED: LIDOCAINE 1% INJ 10MG/ML (20 ML MDV) ONE (07:55)
--- NOTE | 2021-04-19 08:06 | P.GSHP ---
History of Present Illness H&P Date: 04/19/21 Chief Complaint: Umbilical hernia This is a 30-year-old female who has developed an umbilical hernia. Patient rents today for laparoscopic robotic-assisted repair. Past Medical History Past Medical History: No Reported History Additional Past Medical History / Comment(s): Umbilical hernia History of Any Multi-Drug Resistant Organisms: None Reported Past Surgical History: Section Additional Past Surgical History / Comment(s): [place] teeth removal Past Anesthesia/Blood Transfusion Reactions: Motion Sickness Smoking Status: Never smoker - Past Family History Father Family Medical History: Hypertension Mother Family Medical History: Hypertension Medications and Allergies Home Medications Medication Instructions Recorded Confirmed Type Sertraline HCl [Zoloft] 50 mg PO DAILY 04/16/20 04/19/21 History Acetaminophen [Tylenol Extra 500 - 1,000 mg PO DIRECTED PRN 04/18/21 04/19/21 History Strength] Norlyda 1 tab PO DAILY 04/18/21 04/19/21 History Allergies Allergy/AdvReac Type Severity Reaction Status Date / Time Penicillins Allergy Rash/Hives Verified 04/19/21 06:26 Surgical - Exam Vital Signs Temp Pulse Resp BP Pulse Ox 97.0 F L 64 16 113/61 97 04/19/21 06:30 04/19/21 06:30 04/19/21 06:30 04/19/21 06:30 04/19/21 06:30 - General well developed, well nourished, no distress - Eyes PERRL - ENT normal pinna - Neck no masses - Respiratory normal expansion - Cardiovascular Rhythm: regular - Abdomen Abdomen: soft, non tender Hernia: umbilical Assessment and Plan Assessment: Umbilical hernia. We'll perform laparoscopic robotic-assisted repair.
[2021-04-19] MEDS ORDERED: BUPIVACAIN-EPI 0.25%-1:200,000 30 ML VIAL SQ ONE (08:22)
[2021-04-19 09:12] VITALS: TEMP 97.8
--- NOTE | 2021-04-19 09:12 | P.OP ---
Date of Procedure: 04/19/21 Preoperative Diagnosis: Umbilical hernia Postoperative Diagnosis: Incisional hernia Procedure(s) Performed: Laparoscopic robotic system repair of incisional hernia Anesthesia: RISHABH Surgeon: Eb Nguyen Estimated Blood Loss (ml): 5 Pathology: other (Omentum) Condition: stable Disposition: PACU Description of Procedure: TThe patient was placed on the operating table in the supine position. He received general anesthesia. His abdomen was prepped and draped usual fashion. Using a 5 mm optical trocar under direct visualization the peritoneal cavity was entered in the left upper quadrant. The abdomen was then insufflated. The laparoscope was placed back into the perineal cavity. Next a 8 mm robotic trocar was placed in the left lower quadrant and a 12 mm robotic trocar was placed in the left lateral position. The original 5 mm trocar was exchanged for a 8 mm robotic trocar. The patient's placed in the left side up position. And the patient was docked to the robot. The umbilical hernia was visualized. The hernia was actually an incisional hernia related to her previous Pfannenstiel incision. Using hook cautery the peritoneum over the incisional hernia was excised. The incarcerated omentum was transected and sent to pathology. The fascial opening was repaired using 0V LOC suture. Next a piece of 11 cm round ventral light ST mesh was placed into the. Cavity and secured with 2 OV lock suture. The patient was undocked the robot. The needles were retrieved. The fascia of the 12 mm trocar site was closed with 0 Ethibond suture. Skin was closed interrupted 3-0 Monocryl suture. Dermabond dressings was applied. Patient tolerated procedure well and was sent to recovery room stable condition.
[2021-04-19] MEDS: HYDROmorphone 0.5 MG/0.5 ML SYRINGE IVP PRN ×2 (09:34→09:51)
[2021-04-19 10:32] VITALS: BP 104/72; PULSE 90; RESP 16
== END 2021-04-19 11:35 | disposition home or self-care (01) ==
LOC: OR 05:51
PROVIDERS: ATTEND Surgery
DX: K43.2 Incisional hernia without obstruction or gangrene (principal); Z82.49 Family history of ischemic heart disease and other diseases of the circulatory system; Z88.0 Allergy status to penicillin
CPT/HCPCS: 49655; 81025; 64488; 88305; C1781; J2250; J1100; J2710; J2405; J0690; J2001; J3010; J2795; J0330; J2704; J1170; J1644

== ENCOUNTER → 2021-06-26 | Outpatient (CLI) | payer OTHER ==
--- NOTE | 2021-06-26 09:50 | USB ---
Reason for exam: clinical finding. History: Family history of breast cancer in paternal aunt. Indicated problem(s): bloody discharge in the left breast. Physical Findings: Nurse Summary: bilateral nodularity, all soft, movable (nurse ts). US Breast BILAT Right complete breast ultrasound includes all four quadrants, the retroareolar region and axilla. Finding demonstrates no cystic or solid lesion seen. Left complete breast ultrasound includes all four quadrants, the retroareolar region and axilla. Finding demonstrates a 1.6 x 1.1 x 0.4cm oval, hypoechoic lesion at 10 o'clock, subdermal associated with skin scar and duct ectasia at the posterior nipple. These results were verbally communicated with the patient and result sheet given to the patient on 06/26/21. ASSESSMENT: Benign, BI-RAD 2 RECOMMENDATION: Clinical management of both breasts. Manage patient on a clinical basis.
== END | disposition home or self-care (01) ==
LOC: RADUSWWP 08:21
PROVIDERS: ATTEND Obstetrics & Gynecology
DX: N64.4 Mastodynia (principal); N64.52 Nipple discharge; Z80.3 Family history of malignant neoplasm of breast